=== PATIENT | male | born 1940 | race Caucasian/White ===

== ENCOUNTER 2025-05-31 12:30 | Outpatient (CLI) | payer MEDICARE | END 2025-05-31 12:31 | disposition home or self-care (01) | LOC: PET 12:30 | PROVIDERS: ATTEND Radiology Radiation Oncology | DX: C61 Malignant neoplasm of prostate (principal) | CPT/HCPCS: 78815; A9595 ==

== ENCOUNTER 2025-05-31 14:49 | Outpatient (CLI) | payer MEDICARE ==
[2025-05-31 15:34] LABS: Estimated GFR - POC 67.0
== END 2025-05-31 14:50 | disposition home or self-care (01) ==
LOC: SCSMRI 14:49
PROVIDERS: ATTEND Radiology Radiation Oncology
DX: C61 Malignant neoplasm of prostate (principal); K40.20 Bilateral inguinal hernia, without obstruction or gangrene, not specified as recurrent
CPT/HCPCS: 36415; 72197; 78815; 82565; A9595-JZ